=== PATIENT | female | born 1980 | race Caucasian/White ===

== ENCOUNTER 2016-05-18 16:19 | Outpatient (CLI) | payer OTHER ==
[~2016-05-18] VITALS: Ht 170.2 cm; Wt 68.1 kg
[~2016-05-18 16:19] MED LIST: AZULFIDINE ENT500 MG PO; BUSPAR DIVIDOSE15 MG PO; CANASA 1000MG1000 MG RC; LEXAPRO 10MG10 MG PO; MULTIPLE VITAMI1 CAP PO; NUPERCAINAL OIN30 GM RC; PHARMASSURE ZIN50 MG PO; PHENERGAN 25 TA25 MG PO; PRINIVIL5 MG PO; ZYRTEC 10MG10 MG PO
[2016-05-18 16:58] LABS: MEAN CELL VOLUME 91 fl (80.0-100.0); MEAN CORPUSCULAR HGB CONC 34 g/dl (33.0-37.0); MEAN PLATELET VOLUME 9.1 fl (7.4-10.4); PLATELET COUNT 269 K/mm3 (130-400); RED BLOOD COUNT 3.82 M/mm3 (4.10-5.30); REDCELL DISTRIBUTION WIDTH-CV 12.7 % (11.5-14.5); WHITE BLOOD COUNT 6.8 K/mm3 (4.8-10.8)
[2016-05-18 17:05] LABS: HEMATOCRIT 34.7 % (37.0-47.0); HEMOGLOBIN 11.8 g/dl (12.5-16.0); MEAN CORPUSCULAR HEMOGLOBIN 31 pg (27.0-31.0)
[2016-05-18 17:22] LABS: ALBUMIN 3.9 gm/dL (3.5-5.0); TOTAL PROTEIN 6.9 gm/dL (6.4-8.2)
[2016-05-18 17:33] LABS: BILIRUBIN,DIRECT 0.5 mg/dL (0.0-0.4); BILIRUBIN,TOTAL 0.6 mg/dL (0.0-1.0)
[2016-05-18 17:34] VITALS: BP 107/46; PULSE 59; TEMP 98.2
== END 2016-05-18 18:45 | disposition home or self-care (01) ==
LOC: EUO 16:19
PROVIDERS: Internal Medicine Gastroenterology
DX: K50.111 Crohn's disease of large intestine with rectal bleeding (principal)
CPT/HCPCS: J3380; J7050

== ENCOUNTER 2016-07-13 15:43 | Outpatient (CLI) | payer OTHER ==
[2016-07-13 16:03] LABS: HEMATOCRIT 38.5 % (37.0-47.0); HEMOGLOBIN 12.8 g/dl (12.5-16.0); MEAN CELL VOLUME 93 fl (80.0-100.0); MEAN CORPUSCULAR HEMOGLOBIN 31 pg (27.0-31.0); MEAN CORPUSCULAR HGB CONC 33 g/dl (33.0-37.0); MEAN PLATELET VOLUME 8.9 fl (7.4-10.4); PLATELET COUNT 320 K/mm3 (130-400); RED BLOOD COUNT 4.16 M/mm3 (4.10-5.30); REDCELL DISTRIBUTION WIDTH-CV 12.4 % (11.5-14.5); WHITE BLOOD COUNT 10.3 K/mm3 (4.8-10.8)
[2016-07-13 16:18] LABS: ALBUMIN 3.9 gm/dL (3.5-5.0); BILIRUBIN,DIRECT 0.5 mg/dL (0.0-0.4); BILIRUBIN,TOTAL 0.5 mg/dL (0.0-1.0); TOTAL PROTEIN 6.8 gm/dL (6.4-8.2)
[2016-07-13 16:24] VITALS: BP 119/53; PULSE 69; TEMP 98
== END 2016-07-13 17:04 | disposition home or self-care (01) ==
LOC: EUO 15:43
PROVIDERS: Internal Medicine Gastroenterology
DX: K50.111 Crohn's disease of large intestine with rectal bleeding (principal)
CPT/HCPCS: J3380; J7050